=== PATIENT | female | born 1970 | race Two or more races ===

== ENCOUNTER 2023-03-01 19:42 | Emergency (ER) | payer SELFPAY ==
[~2023-03-01] VITALS: Ht 154.9 cm; Wt 110.0 kg
[2023-03-01 22:44] VITALS: BP 150/100
[2023-03-01] MEDS ORDERED: CYCL-837 PO (22:44)
[2023-03-01] MEDS ORDERED: ACET500T58 PO (22:44)
[2023-03-01] MEDS ORDERED: KETOROLAC TROMETH 60MG/2ML VIAL IM ONE (22:45)
== END 2023-03-02 02:39 | disposition home or self-care (01) ==
LOC: ER 19:46
DX: S46.912A Strain of unspecified muscle, fascia and tendon at shoulder and upper arm level, left arm, initial encounter (principal); Z88.1 Allergy status to other antibiotic agents; I10 Essential (primary) hypertension; Z85.3 Personal history of malignant neoplasm of breast; X58.XXXA Exposure to other specified factors, initial encounter; Y93.89 Activity, other specified; Y92.89 Other specified places as the place of occurrence of the external cause; Y99.8 Other external cause status
CPT/HCPCS: 73060; 93971; 96372; 99285; J1885